=== PATIENT | male | born 1960 | race Two or more races ===

== ENCOUNTER 2024-02-13 11:27 | Inpatient (IN) | payer OTHER ==
[~2024-02-13] VITALS: Ht 165.1 cm; Wt 87.5 kg
[~2024-02-13 11:27] MED LIST: ALENDRONATE SOD35 MG PO; AMLODIPINE-OLM1 EAC2; CRITIC-AID CLEAR4 GM; EZALLOR SPRINKL40 MG; FOLIC ACID0.8 M1; GLIMEPIRIDE2 M1 PO; GLUMETZA1000 MG; LOVAZA1 GM PO; OCUVITE EYE HE1 EACH; TIROSINT25 MCG; ZESTRIL10 M1
[2024-02-13] MEDS ORDERED: TRADJENTA5 MG PO (11:52)
[2024-02-13] MEDS ORDERED: NORVASC5 MG PO (11:52)
[2024-02-13] MEDS ORDERED: ZETIA10 MG PO (11:52)
[2024-02-13] MEDS ORDERED: EZALLOR SPRINKL40 MG PO (11:53)
--- NOTE | 2024-02-13 11:53 | NUR ---
SE RECIBE PTE ALERTA Y ORIENTADO X3 EL MISMO REFIERE QUE ESTA SANGRADO POR COLOSTOMIA DESDE EL LUNES. DRA BLANTON LO REFIERE A CONNIE DE EMERGENCIA Y QUE LE BRINDE CONTINUIDAD EL DR REINA HINDS.
[2024-02-13] MEDS ORDERED: PIPERACILLIN/TAZOBACTAM SODIUM 3.375 GM in 0.9 % SODIUM CHLORIDE 100 ML IV SCH (12:00)
[2024-02-13] MEDS ORDERED: PANTOPRAZOLE SODIUM 40 MG in 0.9 % SODIUM CHLORIDE 8 ML IV PUSH STA (12:54)
[2024-02-13] MEDS ORDERED: 0.9 % SODIUM CHLORIDE 1,000 ML IV SCH (13:00)
[2024-02-13] MEDS ORDERED: PIPERACILLIN/TAZOBACTAM SODIUM 3.375 GM VIAL IV ONE (13:06)
[2024-02-13] MEDS ORDERED: BARIUM SULFATE 450 ML ORAL.SUSP PO ONE (13:12)
[2024-02-13 13:30] LABS: HEMATOCRIT 28.7 % (39.0-48.0); HEMOGLOBIN 9.9 g/dL (13-16.00); MEAN CORPUSCULAR HEMOGLOBIN 29.9 pg (27.00-32.0); MEAN CORPUSCULAR HGB CONC 34.4 g/dl (32.0-36.0); PLATELET COUNT 321 K/uL (150-450); RED CELL DISTRIBUTION WIDTH 13.2 % (11.5-14.5)
--- NOTE | 2024-02-13 13:51 | NUR ---
PTE EVALUADO POR EL JESSICA FOX. SAMM CAMPBELL CANALCARMINEA, KATIA MUESTARS DE LAB Y ADMINISTRA MEDICAMNETO LUCIA ORDEN MEDICA BAJO MEIDDAS ASEPTICAS. SE COMIENZA CONTRASTE PO PARA ESTUDIO DE CT.
[2024-02-13 13:57] LABS: ALBUMIN 3.7 gm/dL (3.4-5.0); BILIRUBIN TOTAL 0.27 mg/dL (0.3-1.2); CALCIUM 8.8 mg/dL (8.5-10.1); CREATININE SERUM 0.85 mg/dL (0.70-1.30); GFR 90.46; GLOBULINA 4.1 G/DL (2.4-3.5); POTASSIUM 4.66 mEq/L (3.5-5.1); TOTAL PROTEIN 7.8 gm/dL (6.4-8.2)
--- NOTE | 2024-02-13 15:12 | NUR ---
SE RECIBE PTE ALERTA Y ORIENTADO X3 EN MARLA BAJA CON BARANDAS ELEVADAS POR SEGURIDAD. SE OBSERVA PTE CON BUEN PATRON RESPIRATORIO. CANALIZADO ENH PERIFERAL RT CON ANGIO #20 PATENTE. AREA DE VENOPUNCION YONIS DE EDEMA Y ERITEMA. RECIBIENDO 0.9NSS 1000ML BAJANDO 120ML/HR. PEND CT ABD/PEL PO A LAS 3:35PM
[2024-02-13] MEDS ORDERED: PANTOPRAZOLE SODIUM 40 MG/VIAL VIAL IV SCH (20:43)
[2024-02-13] MEDS ORDERED: INSULIN LISPRO 1,000 UNIT/10 ML UNITS SUBCUTANEO PRN (20:45)
[2024-02-13] MEDS ORDERED: DEXTROSE 50 % IN WATER 0.5 G/ML DISP.SYRIN IV PRN (20:45)
[2024-02-13] MEDS ORDERED: ONDANSETRON HCL 4 MG in 0.9 % SODIUM CHLORIDE 50 ML IV PRN (20:45)
[2024-02-13] MEDS ORDERED: ACETAMINOPHEN 500 MG GEL..CAP PO PRN (20:45)
[2024-02-14 00:28] LABS: ob POSITIVE (NEGATIVE)
[2024-02-14 00:28] LABS: URINE APPEARANCE Clear; URINE BILIRRUBIN Negative (NEGATIVE); URINE BLOOD Negative; URINE COLOR Yellow; URINE GLUCOSE Negative (NEGATIVE); URINE LEUKOCYTE Negative; URINE NITRATE Negative; URINE PROTEIN Negative (NEGATIVE); URINE UROBILINOGEN 0.2 E.U./dl
[2024-02-14 00:31] LABS: URINE BACTERIA 18.8 uL (0.0-1933); URINE EPITHELIAL CELLS 3.8 uL (0.0-38.8); URINE WBC 4.6 uL (0.0-23.2)
[2024-02-14 00:33] LABS: URINE RBC 1.2 uL (0.0-20.8)
[2024-02-14 00:36] LABS: INR 1.04; PARTIAL THROMBOPLASTIN TIME 27.7 SECONDS (22.0-34.0); PROTHROMBIN TIME 10.9 SECONDS (9.0-11.5)
[2024-02-14] MEDS ORDERED: LEVOTHYROXINE SODIUM 25 MCG TABLET PO SCH (06:00)
[2024-02-14] MEDS ORDERED: LISINOPRIL 10 MG TABLET PO SCH (09:00)
[2024-02-14] MEDS ORDERED: AMLODIPINE BESYLATE 5 MG TABLET PO SCH (09:00)
[2024-02-14] MEDS ORDERED: DEXTROSE 50 % IN WATER 0.5 G/ML VIAL IV PRN (11:30)
[2024-02-14 15:42] LABS: HEMATOCRIT 28.4 % (39.0-48.0); HEMOGLOBIN 9.5 g/dL (13-16.00); MEAN CELL VOLUME 87.6 fL (80.0-100.00); MEAN CORPUSCULAR HEMOGLOBIN 29.2 pg (27.00-32.0); MEAN CORPUSCULAR HGB CONC 33.3 g/dl (32.0-36.0); PLATELET COUNT 288 K/uL (150-450); RED BLOOD COUNT 3.25 M/uL (4.00-6.00); RED CELL DISTRIBUTION WIDTH 13.5 % (11.5-14.5)
[2024-02-14] MEDS ORDERED: PATIENTS OWN MEDICATION (MEDICAMENTO EN PISO) PO SCH (17:00)
[2024-02-14] MEDS ORDERED: METRONIDAZOLE/SODIUM CHLORIDE 100 ML IV SCH (17:00)
[2024-02-14] MEDS ORDERED: CIPROFLOXACIN IN 5 % DEXTROSE 200 ML IV SCH (21:00)
[2024-02-15 06:57] LABS: HEMATOCRIT 24.1 % (39.0-48.0); MEAN CELL VOLUME 85.5 fL (80.0-100.00); MEAN CORPUSCULAR HGB CONC 35.1 g/dl (32.0-36.0); PLATELET COUNT 251 K/uL (150-450); RED BLOOD COUNT 2.83 M/uL (4.00-6.00); RED CELL DISTRIBUTION WIDTH 13.7 % (11.5-14.5)
[2024-02-15 07:07] LABS: ALBUMIN 3.2 gm/dL (3.4-5.0); BILIRUBIN TOTAL 0.35 mg/dL (0.3-1.2); CALCIUM 8.4 mg/dL (8.5-10.1); CREATININE SERUM 0.78 mg/dL (0.70-1.30); GFR 99.89; GLOBULINA 3.3 G/DL (2.4-3.5); POTASSIUM 4.81 mEq/L (3.5-5.1); TOTAL PROTEIN 6.5 gm/dL (6.4-8.2)
[2024-02-15 07:08] LABS: HEMOGLOBIN 8.5 g/dL (13-16.00)
[2024-02-15 07:21] LABS: INR 1.08; PROTHROMBIN TIME 11.3 SECONDS (9.0-11.5)
[2024-02-15] MEDS ORDERED: FUROsemide 20 MG/2 ML VIAL IV SCH (21:15)
[2024-02-16 09:11] LABS: CA 19-9 13 U/mL (0-35)
[2024-02-16 11:07] LABS: HEMATOCRIT 26.3 % (39.0-48.0); HEMOGLOBIN 9.1 g/dL (13-16.00); MEAN CELL VOLUME 86.4 fL (80.0-100.00); MEAN CORPUSCULAR HEMOGLOBIN 29.9 pg (27.00-32.0); MEAN CORPUSCULAR HGB CONC 34.5 g/dl (32.0-36.0); PLATELET COUNT 284 K/uL (150-450); RED BLOOD COUNT 3.04 M/uL (4.00-6.00); RED CELL DISTRIBUTION WIDTH 13.7 % (11.5-14.5)
[2024-02-17 06:39] LABS: HEMATOCRIT 27.6 % (39.0-48.0); HEMOGLOBIN 9.6 g/dL (13-16.00); MEAN CELL VOLUME 85.2 fL (80.0-100.00); MEAN CORPUSCULAR HEMOGLOBIN 29.5 pg (27.00-32.0); MEAN CORPUSCULAR HGB CONC 34.7 g/dl (32.0-36.0); PLATELET COUNT 238 K/uL (150-450); RED BLOOD COUNT 3.24 M/uL (4.00-6.00)
== END 2024-02-17 13:11 | disposition home or self-care (01) | DRG 378 ==
LOC: ER 11:28 → MEDJ 21:09 → SEC-K 21:09 → MEDJ 21:53
PROVIDERS: General Practice; Internal Medicine Infectious Disease; ADMIT Internal Medicine; ATTEND Internal Medicine
PROC: BW21YZZ Computerized Tomography (CT Scan) of Abdomen and Pelvis using Other Contrast (ICD-10-PCS; 2024-02-13)
PROC: B24BZZZ Ultrasonography of Heart with Aorta (ICD-10-PCS; 2024-02-15)
PROC: 30233N1 Transfusion of Nonautologous Red Blood Cells into Peripheral Vein, Percutaneous Approach (ICD-10-PCS; principal; 2024-02-16)
DX: K92.2 Gastrointestinal hemorrhage, unspecified (principal); K94.03 Colostomy malfunction; K43.5 Parastomal hernia without obstruction or gangrene; D64.9 Anemia, unspecified; I10 Essential (primary) hypertension; E11.9 Type 2 diabetes mellitus without complications; Z79.84 Long term (current) use of oral hypoglycemic drugs; E78.5 Hyperlipidemia, unspecified